=== PATIENT | female | born 1990 | race Two or more races ===

== ENCOUNTER 2020-06-24 15:10 | Outpatient (CLI) | payer OTHER | END 2020-06-24 15:50 | disposition home or self-care (01) | LOC: NST 15:10 | PROVIDERS: ATTEND Obstetrics & Gynecology | DX: Z34.83 Encounter for supervision of other normal pregnancy, third trimester (principal) ==

== ENCOUNTER 2020-06-28 13:15 | Inpatient (IN) | payer OTHER ==
[~2020-06-28] VITALS: Ht 154.9 cm; Wt 76.2 kg
[2020-07-13] MEDS ORDERED: PRENATAL TABLE1 EAC1 PO (15:23)
[2020-07-13] MEDS ORDERED: FOLIC ACID1 MG PO (15:24)
[2020-07-13] MEDS ORDERED: IRON325 MG PO (15:24)
[2020-07-13] MEDS ORDERED: PEPCID AC20 MG PO (15:26)
[2020-07-13] MEDS ORDERED: VITAMIN B6100 MG/2.5 PO (15:27)
[2020-07-14] MEDS ORDERED: PROCTOCREAM-HC30 GM (10:31)
[2020-07-17] MEDS ORDERED: KETO10TA2 PO (10:05)
[2020-07-17] MEDS ORDERED: OXYC1TAB9 PO (10:06)
== END 2020-07-17 14:07 | disposition home or self-care (01) | DRG 788 ==
LOC: OB/GYN 07-10 13:15 → LDR 07-13 14:01 → O/R 07-14 17:00 → SURG-SUITE 07-14 19:54
PROVIDERS: ADMIT Obstetrics & Gynecology; ATTEND Obstetrics & Gynecology
PROC: 10D00Z1 Extraction of Products of Conception, Low, Open Approach (ICD-10-PCS; principal; 2020-07-14 16:00)
DX: O82 Encounter for cesarean delivery without indication (principal); Z3A.40 40 weeks gestation of pregnancy; Z37.0 Single live birth

== ENCOUNTER 2020-07-06 10:06 | Outpatient (CLI) | payer OTHER | END 2020-07-06 11:09 | disposition home or self-care (01) | LOC: NST 10:06 | PROVIDERS: ATTEND Obstetrics & Gynecology Maternal & Fetal Medicine | DX: Z34.83 Encounter for supervision of other normal pregnancy, third trimester (principal) ==

== ENCOUNTER 2020-07-08 12:40 | Outpatient (CLI) | payer OTHER | END 2020-07-08 13:35 | disposition home or self-care (01) | LOC: NST 12:40 | PROVIDERS: ATTEND Obstetrics & Gynecology | DX: Z34.83 Encounter for supervision of other normal pregnancy, third trimester (principal) ==